=== PATIENT | male | born 1980 | race Caucasian/White ===

== ENCOUNTER 2022-09-27 14:49 | Emergency (ER) | payer OTHER, SELFPAY ==
[2022-09-27 14:56] VITALS: BP 153/89; PULSE 96; RESP 16; TEMP 37.9; O2SAT 98
--- NOTE | 2022-09-27 15:05 | ED.URI ---
HPI - URI/Sore Throat General Chief Complaint: Upper Respiratory Infection Stated Complaint: Sore Throat Time Seen by Provider: 09/27/22 15:00 Source: patient Mode of arrival: ambulatory Limitations: no limitations History of Present Illness HPI Narrative: Mr. Gaines is a 42-year-old male patient presenting to clinic today with complaints of a sore throat times 1-2 days. He also reports a low-grade fever. States that his twin boys both had strep and scarlet fever. MD elicited complaint: fever and sore throat Related Data Allergies Allergy/AdvReac Type Severity Reaction Status Date / Time No Known Allergies Allergy Unverified 09/27/22 15:03 Review of Systems Review of Systems: Pertinent positives per HPI. Patient denies any rash, headache, visual changes, dizziness, cough, shortness of breath, chest pain, palpitations, nausea, vomiting, diarrhea, constipation, abdominal pain, or any urinary issues. PMFSH Comments At the time of my signature, I reviewed and agree with the nursing past medical, surgical, social, and family history. There is no relevant family history pertinent to the patient complaint. Exam Narrative: General: Well-developed, well nourished, in no apparent distress Head: Normocephalic, atraumatic Eyes: Pupils equally round and reactive to light bilaterally, EOM intact, sclera and conjunctive clear, no discharge, lids normal Ears: TMs intact and clear, ear canals clear, no drainage, grossly hearing normal. Nose: Nares patent, no discharge, no inflammation, no sinus tenderness. Mouth: Oral pharynx without lesions or masses, good dentition, MMM. Oropharynx red with bilateral tonsillar enlargement and white exudate Neck: Supple, trachea midline, moderate enlargement of anterior or posterior cervical nodes, no thyroid masses or goiter palpable. Cardio: Regular rate and rhythm, s1 and s2 normal, no murmur appreciated. Resp: Clear to auscultation bilaterally, no rhonchi, rales, wheezing or rubs Course Course Emergency Course: Portions of this record may have been created with voice recognition software. Level of Care: Express Care Visit Vital Signs Vital signs: Vital Signs Temperature 37.9 C H 09/27/22 14:56 Pulse Rate 96 09/27/22 14:56 Respiratory Rate 16 09/27/22 14:56 Blood Pressure 153/89 H 09/27/22 14:56 Pulse Oximetry 98 12/30/22 14:56 Oxygen Delivery Room Air 09/27/22 14:56 Temperature 37.9 C H 09/27/22 14:56 Pulse Rate 96 09/27/22 14:56 Respiratory Rate 16 09/27/22 14:56 Blood Pressure 153/89 H 09/27/22 14:56 Pulse Oximetry 98 09/27/22 14:56 Oxygen Delivery Room Air 09/27/22 14:56 Vital signs reviewed MDM - URI/Sore Throat MDM Narrative Medical decision making narrative: At the time of visit patient is resting comfortably on exam table. Patient has had positive strep exposure and Centor criteria is 4-4 so I will empirically treat for strep pharyngitis. Prescription for amoxicillin was sent to the pharmacy and supportive measures were discussed with the patient he voiced understanding discharge instructions agrees to treatment plan. Differential Diagnosis Differential diagnosis: Likely upper respiratory infection, otitis media, sinusitis, viral infection, bronchitis, influenza, pharyngitis and other ( COVID) Discharge Plan Discharge Clinical Impression: Pharyngitis, Exposure to group A Streptococcus Patient Disposition: Home, Self-Care Condition: Stable Instructions: Antibiotic Form, Pharyngitis (ED) Additional Instructions: Take prescription medications only as prescribed- amoxicillin Change to brush in 24 hours after initiation antibiotics Increase fluids and stay well hydrated Tylenol/motrin for pain/fever Flonase and OTC antihistamines as directed Vicks vapor rub to open sinuses Sinus rinses for congestion Cepacol spray, cough drops, throat lozenges, warm tea with honey/lemon, gargle salt water to soothe throat
== END 2022-09-27 15:12 | disposition home or self-care (01) ==
PROVIDERS: Emergency Provider Nurse Practitioner Family
DX: J02.9 Acute pharyngitis, unspecified (principal); Z20.818 Contact with and (suspected) exposure to other bacterial communicable diseases; Z98.52 Vasectomy status
CPT/HCPCS: 99203; G0463

== ENCOUNTER 2023-01-07 11:53 | Emergency (ER) | payer BC, SELFPAY ==
[2023-01-07 12:01] VITALS: BP 148/94; PULSE 83; RESP 16; TEMP 37.1
[2023-01-07 12:08] VITALS: O2SAT 96
--- NOTE | 2023-01-07 12:08 | ED.URI ---
HPI - URI/Sore Throat General Chief Complaint: Upper Respiratory Infection Stated Complaint: pressure down neck/no taste or smell Source: patient and RN notes reviewed History of Present Illness HPI Narrative: 42 yo M presnets to urgent care with complaints of bilateral, posterior, scalp pain that will intermittently radiate down right lateral neck. Pt states he has also developed some congestion and runny nose recently. Pt states this pain is putting pressure behind his eyes and reports a PINO. Pt just finished a course of steroids and a zpack for bronchitis that he was dx with on Friday. Pt denies any fevers, chills, dizziness, visual disturbance, vomiting, ear pain, or sore throat. Related Data Allergies Allergy/AdvReac Type Severity Reaction Status Date / Time No Known Allergies Allergy Unverified 09/27/22 15:03 Review of Systems Review of Systems: Pertinent positives and pertinent negatives per HPI. PMFSH Comments At the time of my signature, I reviewed and agree with the nursing past medical, surgical, social, and family history. There is no relevant family history pertinent to the patient complaint. Exam Narrative: GENERAL: This is a well-nourished, well-developed patient, in no apparent distress. HEAD: normocephalic, atraumatic. Mild lymphadenopathy noted to occipital scalp. EYES: PERRL. Sclera clear/white. Vision is grossly intact. EARS: External ears normal, auditory canals clear and without drainage, TMs normal without perforation. Hearing grossly intact. NOSE: External nose normal with no obvious nasal discharge, nares without redness, no rhinorrhea. THROAT: Mucous membranes moist, posterior pharynx clear. NECK: Neck supple, non-tender without masses or thyromegaly. Full ROM noted. CARDIOVASCULAR: Regular rate and rhythm without murmurs, gallops, or rubs. RESPIRATORY: Clear to auscultation. Breath sounds equal bilaterally. No wheezes, rales, or rhonchi. GASTROINTESTINAL: Abdomen soft, non-tender, nondistended. Bowel sounds are active. No hepato-splenomegaly, or palpable masses. No guarding. SKIN: warm, intact with no suspicious lesions or rash, good texture and turgor. NEURO: awake, alert, and oriented to person, place and time. There were no obvious focal neurologic abnormalities. EXTREMITIES: No clubbing, cyanosis, or edema. No joint tenderness, effusion, or edema noted. BACK: Nontender without deformity or crepitance. No flank tenderness. Course Course Level of Care: Express Care Visit Vital Signs Vital signs: Vital Signs Temperature 98.7 F 01/07/23 12:01 Pulse Rate 83 01/07/23 12:01 Respiratory Rate 16 01/07/23 12:01 Blood Pressure 148/94 H 01/07/23 12:01 Oxygen Delivery Room Air 01/07/23 12:01 Temperature 98.7 F 01/07/23 12:01 Pulse Rate 83 01/07/23 12:01 Respiratory Rate 16 01/07/23 12:01 Blood Pressure 148/94 H 01/07/23 12:01 Oxygen Delivery Room Air 01/07/23 12:01 Reviewed MDM - URI/Sore Throat MDM Narrative Medical decision making narrative: Viral illness may last between 7-12days; antibiotic is NOT recommended at this time. Recommend antihistamine such as Benadryl at night time and Claritin/Zyrtec/Gabriela during the day. Increase your Vitamin C intake. Also, recommend symptomatic treatment includes: rest, fluids, increase humidity of the air at home with a humidifier in the bedroom. Recommend Acetaminophen or nonsteroidal anti-inflammatory agents(NSAIDs) as directed in the bottle to reduce fever and/pain/headache. Avoid smoking/second-hand smoke. Limit visits to areas with large crowds. Frequent hand washing or hand escort vehicle driver is one of the best ways to prevent spread of infection. Differential Diagnosis Differential diagnosis: Likely upper respiratory infection, sinusitis and viral infection Critical Care Time Critical Care Time Critical Care Time: No Discharge Plan Discharge Clinical Impression: Upper respiratory infection Qualifiers: URI type: u
== END 2023-01-07 12:21 | disposition home or self-care (01) ==
PROVIDERS: Emergency Provider Nurse Practitioner Family
DX: J06.9 Acute upper respiratory infection, unspecified (principal)
CPT/HCPCS: 99211; G0463

== ENCOUNTER 2023-12-31 01:02 | Day surgery (SDC) | payer BC, SELFPAY ==
[2023-12-23 16:08] VITALS: BMI 29.2
--- NOTE | 2023-12-29 12:36 | SUR.PREOP ---
Patient called regarding upcoming procedure. Unable to leave a message.
[2023-12-31 09:18] VITALS: BP 141/93; PULSE 69; RESP 16; TEMP 36.6; O2SAT 99; BMI 29.1
[2023-12-31] MEDS: LACTATED RINGERS 1,000 ML 150 ML IV CONT (09:35)
--- NOTE | 2023-12-31 09:52 | P.PNAN_ITS ---
Anes - Initial Pre Proc Eval Procedure: Operation Date: 12/31/23 10:30 Proposed Procedures p Colonoscopy - Jose Encarnacion MD Date/Time: 12/31/23 09:52 Surgeon: Jose Encarnacion MD Pre Op Diagnosis: Other fecal abnormalities Patient Data Age: 43 Gender: M Height: 1.75 m Weight: 89.6 kg Last Vital Signs Temp 97.9 F 12/31/23 09:18 Pulse 69 12/31/23 09:18 Resp 16 12/31/23 09:18 BP 141/93 H 12/31/23 09:18 Pulse Ox 99 12/31/23 09:18 O2 Del Method Room Air 12/31/23 09:18 Allergies Allergy/AdvReac Type Severity Reaction Status Date / Time No Known Allergies Allergy Verified 12/31/23 09:25 Home Medications Medication Instructions Recorded Confirmed Type cholecalciferol (vitamin D3) 1,250 1,250 mcg PO WEEKLY #12 caps 12/08/23 12/31/23 Rx mcg (50,000 unit) capsule Patient hx anesthesia problems: none Family hx anesthesia problems: none Results Review: All pre-operative results and documents have been reviewed as part of the pre- operative evaluation. [facility] Past Medical History Medical History Vitamin D3 deficiency Social History Social History Years smoked: 27 Smoking status: Former smoker Tobacco type: e-cigarettes/vaping Smokeless tobacco user: chewing tobacco Additional smoking assessment comments: STARTEED VAPING A COUPLE YEARS AGO Alcohol intake: former Substance use: never Substance use type: does not use Living arrangements: with family Spiritual care concerns: No Anes - Eval Final PreProcedure Day of Procedure 12/31/23 09:52 Patient weight: normal Heart: regular rate and rhythm Lungs: clear to auscultation Airway: Mallampati scale class II Neurological: alert and oriented Last oral intake: >/= 8 hours ASA classification: II Emergent: no Anesthetic plan: proceed Anesthesia type and monitoring: general and standard monitoring Results Review: All pre-operative results and documents have been reviewed as part of the pre- operative evaluation. Informed Consent: The patient's anesthetic plan and its attendant risks and benefits were discussed with the patient/family/POA. Questions were solicited and answers provided to the satisfaction of the patient/family/POA.
--- NOTE | 2023-12-31 09:52 | PM.HPGS ---
History of Present Illness History of Present Illness Consent: Risks, benefits, and alternatives have been discussed and questions answered. Patient agrees to proceed with procedure. Chief complaint: Other fecal abnormalities Narrative: Neel Gaines is a 43 year old male here for first colonoscopy, + cologuard Review of Systems Review of Systems: All systems reviewed & are unremarkable except as noted in HPI and below PMFSH Past Medical History Medical History (Updated 12/31/23 @ 09:52 by Jose Encarnacion MD) Positive colorectal cancer screening using Cologuard test Vitamin D3 deficiency Social History Social History Years smoked: 27 Smoking status: Former smoker Tobacco type: e-cigarettes/vaping Smokeless tobacco user: chewing tobacco Additional smoking assessment comments: STARTEED VAPING A COUPLE YEARS AGO Alcohol intake: former Substance use: never Substance use type: does not use Living arrangements: with family Spiritual care concerns: No Meds Home Medications and Allergies Home Medications Medication Instructions Recorded Confirmed Type cholecalciferol (vitamin D3) 1,250 1,250 mcg PO WEEKLY #12 caps 12/08/23 12/31/23 Rx mcg (50,000 unit) capsule Allergies Allergy/AdvReac Type Severity Reaction Status Date / Time No Known Allergies Allergy Verified 12/31/23 09:25 Vital Signs Vital Signs - 24 hr 12/31/23 09:18 Temperature 97.9 F Pulse Rate 69 Respiratory Rate 16 Blood Pressure 141/93 H Pulse Oximetry 99 Oxygen Delivery Room Air Exam Const: General: comfortable and no acute distress HENMT: Face/Nose/Sinus: Normal nares present Eyes: General: appearance normal, both eyes and all related structures Neck: Neck: no JVD Resp: Auscultation: clear to auscultation bilaterally Cardio: Rate: regular rate Rhythm: regular rhythm GI: Inspection: non-distended GI Palp: Yes Soft to palpation Skin: General skin exam: normal color Neuro: General: gait normal Speech: normal speech Extrem: General: normal to inspection Psych: Mental Status: mental status grossly normal Assessment and Plan Assessment and plan (1) Positive colorectal cancer screening using Cologuard test: Code(s): R19.5 - Other fecal abnormalities Status: Acute Assessment and Plan: colonoscopy
[2023-12-31 10:14] VITALS: BP 104/65; PULSE 59; RESP 19; O2SAT 99
[2023-12-31 10:24] VITALS: BP 104/66; PULSE 57; RESP 19; O2SAT 99
[2023-12-31 10:34] VITALS: BP 116/77; PULSE 61; RESP 24; O2SAT 98
== END 2023-12-31 10:45 | disposition home or self-care (01) ==
PROVIDERS: PCP Emergency Medicine; Visit Provider Internal Medicine Gastroenterology
PROC: 0DJD8ZZ Inspection of Lower Intestinal Tract, Via Natural or Artificial Opening Endoscopic (ICD-10-PCS; CPT 45378; principal; 2023-12-31 10:30)
DX: D12.3 Benign neoplasm of transverse colon (principal); D12.4 Benign neoplasm of descending colon; K64.8 Other hemorrhoids; E55.9 Vitamin D deficiency, unspecified; F17.290 Nicotine dependence, other tobacco product, uncomplicated
CPT/HCPCS: 45380; 45385; 88305; J2704; J7120